=== PATIENT | male | born 1990 | race Caucasian/White ===

== ENCOUNTER 2019-07-20 17:59 | Emergency (ER) | payer OTHER ==
[~2019-07-20] VITALS: Ht 182.9 cm; Wt 81.6 kg
[2019-07-20 18:01] VITALS: BP 139/84; Ht 182.9 cm; Wt 81.6 kg
== END 2019-07-20 18:37 | disposition other institution (70) ==
LOC: ED 17:59
DX: S20.312A Abrasion of left front wall of thorax, initial encounter (principal); S30.811A Abrasion of abdominal wall, initial encounter; W54.0XXA Bitten by dog, initial encounter; Y93.89 Activity, other specified; Y92.89 Other specified places as the place of occurrence of the external cause; Y99.8 Other external cause status

== ENCOUNTER 2019-07-20 18:28 | Emergency (ER) | payer OTHER | END 2019-07-20 18:37 | disposition other institution (70) | LOC: ED 18:28 | DX: Z02.89 Encounter for other administrative examinations (principal) ==